=== PATIENT | male | born 1940 | race Caucasian/White ===

== ENCOUNTER 2020-06-20 16:12 | Emergency (ER) | payer MEDICARE, OTHER ==
[~2020-06-20] VITALS: Ht 175.3 cm; Wt 85.5 kg
[2020-06-20 17:10] LABS: BASO # 0.1 10^3/uL (0.0-0.2); BASO % 1.1 % (0.0-1.0); EOS # 0.9 10^3/uL (0.0-0.5); EOS % 9.5 % (0.0-3.0); HEMATOCRIT 41.6 % (42.0-52.0); HEMOGLOBIN 13.5 g/dl (13.5-17.5); LYMPH # 1.5 10^3/uL (1.5-5.0); LYMPH % 14.8 % (24.0-44.0); MEAN CORPUSCULAR HEMOGLOBIN 29.2 pg (27.0-33.0); MEAN CORPUSCULAR HGB CONC 32.5 g/dl (32.0-36.5); MONO % 9.7 % (2.0-8.0); NEUTROPHILS # 6.4 10^3/uL (1.5-8.5); NEUTROPHILS % 64.5 % (36.0-66.0); PLATELET COUNT, AUTOMATED 209 10^3/uL (150-450); RED BLOOD COUNT 4.62 10^6/uL (4.30-6.10); WHITE BLOOD COUNT 9.9 10^3/uL (4.0-10.0)
[2020-06-20 17:19] LABS: INR 0.94; PARTIAL THROMBOPLASTIN TIME 30.8 SECONDS (24.2-38.5); PROTHROMBIN TIME 12.8 SECONDS (12.5-14.3)
[2020-06-20 17:26] LABS: VENOUS HCO3 24.3 MEQ/L (23.0-27.0); VENOUS O2 SATURATION 90.8 % (60.0-80.0); VENOUS PARTIAL PRESSURE CO2 38.4 mmHg (38.0-50.0); VENOUS PARTIAL PRESSURE O2 56.8 mmHg (30.0-50.0); VENOUS PH 7.419 UNITS (7.330-7.430); VENOUS STANDARD HCO3 24.3 MEQ/L; VENOUS TOTAL CO2 25.5 MEQ/L (24.0-28.0)
--- NOTE | 2020-06-20 17:32 | REP ---
INDICATION: CHEST PAIN. COMPARISON: None. TECHNIQUE: Portable AP chest with the patient sitting. FINDINGS: No infiltrates or pleural effusions are identified. There is an ovoid nodule like density measuring 2.3 cm inferiorly in the right lung. This could be a lung nodule or artifact from the scapular tip. There are sternotomy wires. Cardiac size is upper normal. Bilateral shoulder osteoarthritis. There are surgical clips in the abdominal right upper quadrant. IMPRESSION: Question right lung nodule versus artifact from the right scapular tip. No acute cardiopulmonary findings. Sternotomy wires and abdominal right upper quadrant surgical clips. Bilateral shoulder osteoarthritis. <Electronically signed by Chano Rodriguez > 06/20/20 [id number]
[2020-06-20 17:45] LABS: ALBUMIN 3.5 GM/DL (3.2-5.2); BILIRUBIN,DIRECT 0.2 MG/DL (0.0-0.2); BILIRUBIN,TOTAL 0.4 MG/DL (0.2-1.0); FREE T4 0.9 NG/DL (0.76-1.46); THYROID STIMULATING HORMONE 1.45 uIU/ML (0.358-3.740); TOTAL PROTEIN 7.1 GM/DL (6.4-8.2)
[2020-06-20] MEDS ORDERED: ISOVUE-370 76% 100ML VIAL As Ordered ONE (18:26)
--- NOTE | 2020-06-20 18:49 | REPVR ---
PROCEDURE INFORMATION: Exam: CT Angiography Chest With Contrast Exam date and time: 06/20/2020 6:33 PM Age: 79 years old Clinical indication: Shortness of breath; Additional info: R/O pe TECHNIQUE: Imaging protocol: Computed tomographic angiography of the chest with contrast. 3D rendering (Not supervised by radiologist): MIP and/or 3D reconstructed images were created by the technologist. Radiation optimization: All CT scans at this facility use at least one of these dose optimization techniques: automated exposure control; mA and/or kV adjustment per patient size (includes targeted exams where dose is matched to clinical indication); or iterative reconstruction. Contrast material: ISOVUE 370; Contrast volume: 100 ml; Contrast route: INTRAVENOUS (IV); COMPARISON: [facility] PORTABLE CHEST X-RAY 06/20/2020 5:01 PM FINDINGS: Pulmonary arteries: No focal pulmonary artery filling defect to suggest acute pulmonary embolus. Aorta: Thoracic aorta is ectatic and atherosclerotic. No focal aneurysm or dissection. Lungs: No suspicious lung mass or air space process. No central endobronchial lesion. Subpleural mild emphysematous changes are present. Pleural spaces: No pleural effusion or pneumothorax. 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 Multi-chamber cardiac dilatation is noted. No evidence of acute pulmonary edema. Mediastinal space: GE junction postsurgical changes are present and there is a 4 cm hiatal hernia. Lymph nodes: Small, nonspecific mediastinal nodes are present. 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 Soft tissues: Unremarkable. IMPRESSION: 1. No evidence of acute pulmonary embolus. 2. No other acute or concerning focal intrathoracic abnormality. 3. Postsurgical changes of the GE junction with a 4 cm hiatal hernia. Electronically signed by: Jonathon Dallas On 06/20/2020 18:48:51 PM
[2020-06-20] MEDS ORDERED: PERCOCET 5MG/325MG TAB PO ONE (19:10)
[2020-06-20 20:44] VITALS: BP 124/67
--- NOTE | 2020-06-20 20:53 | ECGEPIP ---
[facility] - ED Test Date: 2020-06-20 Pat Name: ELTON MARRERO Department: Room: - Gender: Male Production Shift Supervisor: NESTOR : [id number] Requested By: Phu Martin Order Number: [id number] Reading MD: Phu Musa Measurements Intervals [place] Rate: 64 P: 57 ND: 216 QRS: -11 QRSD: 168 T: 183 QT: 488 QTc: 503 Interpretive Statements Sinus rhythm with 1st degree AV block Left bundle branch block NO PRIORS FOR COMPARISON Electronically Signed on 06-20-2020 20:53:01 EDT by Phu Musa
== END 2020-06-20 20:47 | disposition home or self-care (01) ==
LOC: M ED 16:12 → EDBD 16:12 → M ED 20:47
DX: J20.9 Acute bronchitis, unspecified (principal); B34.1 Enterovirus infection, unspecified; B34.9 Viral infection, unspecified; R07.9 Chest pain, unspecified; K44.9 Diaphragmatic hernia without obstruction or gangrene; I44.0 Atrioventricular block, first degree; I44.7 Left bundle-branch block, unspecified; M19.019 Primary osteoarthritis, unspecified shoulder; I25.10 Atherosclerotic heart disease of native coronary artery without angina pectoris; I25.2 Old myocardial infarction; E11.9 Type 2 diabetes mellitus without complications; I10 Essential (primary) hypertension; Z95.5 Presence of coronary angioplasty implant and graft; Z95.1 Presence of aortocoronary bypass graft; Z98.61 Coronary angioplasty status; Z87.891 Personal history of nicotine dependence
CPT/HCPCS: 36415; 71045; 71275; 80047; 80076; 82803; 83690; 83880; 84439; 84443; 84484; 85025; 85610; 85730; 87040; 87798; 93005; 93041; 99285; Q9967

== ENCOUNTER → 2021-02-12 | Outpatient (CLI) | payer OTHER ==
[2021-02-12 19:12] LABS: CREATININE FOR GFR 1.26 MG/DL (0.70-1.30); GLOMERULAR FILTRATION RATE 58.8 (>42)
== END ==
LOC: M LAB 18:11
PROVIDERS: ATTEND Otolaryngology
DX: Z01.812 Encounter for preprocedural laboratory examination (principal)

== ENCOUNTER → 2021-02-22 | Outpatient (CLI) | payer OTHER ==
[~2021-02-22] MED LIST: PROHANCE 279.3MG/ML 5ML VIAL ONE
--- NOTE | 2021-02-23 02:32 | REPVR ---
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 TECHNIQUE: Imaging protocol: MR images of the neck without and with intravenous contrast. Contrast material: PROHANCE; Contrast volume: 8 ml; Contrast route: INTRAVENOUS (IV); COMPARISON: CT ST NECK W/ CONTRAST - OUTSIDE PRIOR 12/21/2020 3:21 PM FINDINGS: Pharynx: Unremarkable. Larynx: Unremarkable. Submandibular/Parotid glands: Unremarkable. Retropharyngeal space: Unremarkable. Vasculature: See below. Lymph nodes: No lymphadenopathy. Soft tissues: Redemonstration of approximately 3 x 2.3 x 2 cm heterogeneously enhancing ovoid mass within the right carotid space at the level of the right carotid bifurcation, causing slight mass effect upon the adjacent right internal jugular vein. Bones/joints: Unremarkable. 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 Differential includes but is not limited to paraganglioma versus nerve sheath tumor such as schwannoma. Recommend surgical consultation. Electronically signed by: Wilman Santoro On 02/23/2021 02:31:35 AM
== END ==
LOC: M PLAIMG 09:22
PROVIDERS: ATTEND Otolaryngology
DX: R22.1 Localized swelling, mass and lump, neck (principal)
CPT/HCPCS: 70543; A9576

== ENCOUNTER → 2021-06-05 | Outpatient (CLI) | payer OTHER ==
[~2021-06-05] MED LIST changes: +PROHANCE 279.3MG/ML 15ML VIAL As Ordered ONE; +PROHANCE 279.3MG/ML 5ML VIAL As Ordered ONE; -PROHANCE 279.3MG/ML 5ML VIAL ONE
[2021-06-05 14:53] LABS: BLOOD UREA NITROGEN 10 MG/DL (7-18); CREATININE FOR GFR 0.96 MG/DL (0.70-1.30); GLOMERULAR FILTRATION RATE > 60.0 (>42)
== END ==
LOC: M RAD 12:54
DX: D36.11 Benign neoplasm of peripheral nerves and autonomic nervous system of face, head, and neck (principal)
CPT/HCPCS: 36415; 70543; 82565; 84520; A9576